=== PATIENT | male | born 1965 | race Two or more races ===

== ENCOUNTER 2021-10-10 07:48 | Emergency (ER) | payer OTHER ==
[~2021-10-10] VITALS: Ht 182.9 cm; Wt 96.2 kg
[2021-10-10 07:57] VITALS: BP 106/85
[2021-10-10] MEDS ORDERED: KETOROLAC TROMETH 60MG/2ML VIAL IM ONE (08:00)
[2021-10-10] MEDS ORDERED: IBUP800T27 PO (08:02)
[2021-10-10] MEDS ORDERED: CEPH500T PO (08:02)
== END 2021-10-10 08:30 | disposition home or self-care (01) ==
LOC: ER 07:48
DX: S90.861A Insect bite (nonvenomous), right foot, initial encounter (principal); L08.9 Local infection of the skin and subcutaneous tissue, unspecified; Z88.1 Allergy status to other antibiotic agents; W57.XXXA Bitten or stung by nonvenomous insect and other nonvenomous arthropods, initial encounter; Y93.89 Activity, other specified; Y92.89 Other specified places as the place of occurrence of the external cause; Y99.8 Other external cause status
CPT/HCPCS: 96372; 99283; J1885

== ENCOUNTER 2022-01-04 11:27 | Emergency (ER) | payer OTHER ==
[~2022-01-04] VITALS: Ht 182.9 cm; Wt 93.0 kg
[~2022-01-04 11:27] MED LIST: CEPH500T PO; IBUP800T27 PO
[2022-01-04] MEDS ORDERED: ACYC-161 PO (12:12)
[2022-01-04] MEDS ORDERED: IBUP800T27 PO (12:12)
[2022-01-04 13:29] VITALS: BP 148/91
== END 2022-01-04 13:35 | disposition home or self-care (01) ==
LOC: ER 11:27
DX: B02.9 Zoster without complications (principal); Z90.49 Acquired absence of other specified parts of digestive tract; Z79.1 Long term (current) use of non-steroidal anti-inflammatories (NSAID); Z79.899 Other long term (current) drug therapy; Z88.1 Allergy status to other antibiotic agents

== ENCOUNTER 2022-03-11 21:07 | Emergency (ER) | payer OTHER ==
[~2022-03-11] VITALS: Ht 182.9 cm; Wt 81.6 kg
[~2022-03-11 21:07] MED LIST changes: +ACYC-161 PO
[2022-03-11 21:08] VITALS: BP 153/83
== END 2022-03-11 22:36 | disposition left against medical advice (07) ==
LOC: EDBD 21:07 → ER 21:09
DX: F10.129 Alcohol abuse with intoxication, unspecified (principal); Z88.1 Allergy status to other antibiotic agents; Y90.8 Blood alcohol level of 240 mg/100 ml or more

== ENCOUNTER 2022-05-15 07:08 | Inpatient (IN) | payer OTHER ==
[~2022-05-15] VITALS: Ht 182.9 cm; Wt 89.8 kg
[2022-05-15 08:38] LABS: Urine Bacteria FEW /hpf (None Seen); Urine Blood TRACE /uL (Negative); Urine Hyaline Cast FEW /lpf (0 - 2); Urine Mucus FEW (None Seen); Urine Specific Gravity 1.025 (1.001-1.035); Urine WBC 1 /hpf (0 - 3)
[2022-05-15 08:47] LABS: Calcium 8.7 mg/dL (8.5-10.1); Potassium 4.4 mmol/L (3.5-5.1)
[2022-05-15 08:50] LABS: Amphetamine Screen, Urine NEGATIVE (NEGATIVE); Barbiturate Scree,Urine NEGATIVE (NEGATIVE); Benzodiazephine Screen, Urine NEGATIVE (NEGATIVE); Cannabinoid Screen, Urine POSITIVE (NEGATIVE); Cocaine Screen, Urine NEGATIVE (NEGATIVE); Opiate Scree,Urine NEGATIVE (NEGATIVE); Phencyclidine Screen, Urine NEGATIVE (NEGATIVE)
[2022-05-15 08:53] LABS: Basophils # (auto) 0 10 ^3/uL (0-0.2); Basophils % (auto) 0.7 % (0.0-2.0); Eosinophils # (auto) 0 10 ^3/uL (0-0.8); Eosinophils % (auto) 0.2 % (0.0-7.0); Hemoglobin 15.4 g/dL (13.5-17.5); Lymphocytes # (auto) 1.3 10 ^3/uL (0.4-5.4); Lymphocytes % (auto) 19.7 % (10.0-50.0); Mean Corpuscular Hemoglobin 27.9 pg (28.0-32.0); Mean Corpuscular Hgb Conc. 33.4 g/dL (32.0-36.0); Mean Corpuscular Volume 83.4 fL (80.0-100.0); Monocytes # (auto) 0.5 10 ^3/uL (0-1.3); Monocytes % (auto) 7.7 % (0.0-12.0); Neutrophils # (auto) 4.7 10 ^3/uL (1.6-8.6); Neutrophils % (auto) 71.7 % (37.0-80.0); Nucleated Red Blood Cells % 0.2 %; Red Blood Cells 5.52 10^6/uL (4.5-5.90); Red Cell Distribution Width 16.5 % (11.8-14.3); White Blood Cell 6.5 10^3/uL (4.4-10.8)
[2022-05-15 08:54] LABS: Albumin 4.1 g/dL (3.4-5.0); Bilirubin, Total 1.7 mg/dL (0.2-1.0); Total Protein 7.9 g/dL (6.4-8.2)
[2022-05-15] MEDS ORDERED: LORazepam 2MG/ML-1ML VIAL IV ONE (09:45)
[2022-05-15] MEDS ORDERED: chlordiazePOXIDE HCL 25 MG CAP PO ONE (09:45)
[2022-05-15] MEDS ORDERED: ONDANSETRON HCL 4 MG/2 ML VIAL IV PRN (10:30)
[2022-05-15] MEDS ORDERED: SODIUM CHLORIDE 0.9% 1,000 ML IVB ONE (10:30)
[2022-05-15] MEDS ORDERED: HYDROcodone-ACET 5/325MG TAB PO PRN (10:30)
[2022-05-15] MEDS ORDERED: THIAMINE 100mg/ml INJ (200mg/2ml VIAL) IV ONE (10:30)
[2022-05-15] MEDS ORDERED: ONDANSETRON HCL 4 MG/2 ML VIAL IM PRN (10:30)
[2022-05-15] MEDS: SODIUM CHLORIDE 0.9% 1,000 ML IV SCH ×2 (11:41→18:50)
[2022-05-15] MEDS: LORazepam 2MG/ML-1ML VIAL IV SCH ×7 (12:30→22:30)
[2022-05-15 22:00] VITALS: BP 127/74
[2022-05-16] MEDS: LORazepam 2MG/ML-1ML VIAL IV SCH ×9 (00:30→14:30)
[2022-05-16] MEDS: SODIUM CHLORIDE 0.9% 1,000 ML IV SCH ×3 (03:10→12:59)
[2022-05-16 05:16] VITALS: BP 119/75
[2022-05-16 06:12] LABS: Basophils # (auto) 0 10 ^3/uL (0-0.2); Basophils % (auto) 0.5 % (0.0-2.0); Eosinophils # (auto) 0 10 ^3/uL (0-0.8); Eosinophils % (auto) 1.1 % (0.0-7.0); Hematocrit 39.3 % (41.0-53.0); Hemoglobin 13.4 g/dL (13.5-17.5); Lymphocytes # (auto) 0.8 10 ^3/uL (0.4-5.4); Lymphocytes % (auto) 21.7 % (10.0-50.0); Mean Corpuscular Hemoglobin 28.2 pg (28.0-32.0); Mean Corpuscular Hgb Conc. 34.1 g/dL (32.0-36.0); Mean Corpuscular Volume 82.7 fL (80.0-100.0); Monocytes # (auto) 0.4 10 ^3/uL (0-1.3); Monocytes % (auto) 10.7 % (0.0-12.0); Neutrophils # (auto) 2.3 10 ^3/uL (1.6-8.6); Nucleated Red Blood Cells % 0.2 %; Red Blood Cells 4.75 10^6/uL (4.5-5.90); Red Cell Distribution Width 16.8 % (11.8-14.3); White Blood Cell 3.5 10^3/uL (4.4-10.8)
[2022-05-16 06:20] LABS: Albumin 3.4 g/dL (3.4-5.0); Calcium 7.7 mg/dL (8.5-10.1); Potassium 4.2 mmol/L (3.5-5.1)
[2022-05-16 06:25] LABS: BUN/Creatinine Ratio 12.5; Bilirubin, Total 1.2 mg/dL (0.2-1.0); Total Protein 6.3 g/dL (6.4-8.2)
[2022-05-16 08:25] VITALS: BP 126/76
[2022-05-16 09:00] VITALS: BP 126/76
[2022-05-16] MEDS ORDERED: ENOXAPARIN SOD 40 MG/0.4 ML SYRINGE SC SCH (10:00)
[2022-05-16] MEDS ORDERED: FOLIC ACID 1 MG TAB PO SCH (10:00)
[2022-05-16] MEDS ORDERED: THIAMINE HCL 100 MG TAB PO SCH (10:00)
[2022-05-16 13:00] VITALS: BP 123/82
[2022-05-16] MEDS ORDERED: SODIUM CHLORIDE 0.9% 1,000 ML IV SCH (13:00)
[2022-05-16] MEDS: chlordiazePOXIDE HCL 25 MG CAP PO SCH ×2 (14:00→14:32)
[2022-05-17] MEDS ORDERED: FOLIC ACID 1 MG, MULTIPLE VITAMIN 10 ML, MAGNESIUM SULF SDV 50% 8 MEQ, THIAMINE INJ 100... INJ SCH ×5 (12:00)
== END 2022-05-16 15:30 | disposition left against medical advice (07) | DRG 422 ==
LOC: ER 07:08 → TELE 10:24 → TELE-EAST 19:50
PROVIDERS: ADMIT Internal Medicine; ATTEND Internal Medicine
DX: E86.0 Dehydration (principal); G93.41 Metabolic encephalopathy; F10.129 Alcohol abuse with intoxication, unspecified; R00.0 Tachycardia, unspecified; Z20.822 Contact with and (suspected) exposure to COVID-19; F10.139 Alcohol abuse with withdrawal, unspecified; R79.89 Other specified abnormal findings of blood chemistry; Z88.1 Allergy status to other antibiotic agents; Z90.49 Acquired absence of other specified parts of digestive tract; Z71.41 Alcohol abuse counseling and surveillance of alcoholic; Z53.29 Procedure and treatment not carried out because of patient's decision for other reasons
CPT/HCPCS: 36415; 80053; 80307; 80320; 81001; 83690; 85025; 93005; 96361; 96374; 96375; G0378

== ENCOUNTER 2023-08-25 12:42 | Emergency (ER) | payer OTHER ==
[2023-08-25] MEDS ORDERED: SODIUM CHLORIDE 0.9% 1,000 ML IV ONE (13:30)
[2023-08-25] MEDS ORDERED: LORazepam 2MG/ML-1ML VIAL IV ONE ×2 (13:30→15:30)
[2023-08-25] MEDS ORDERED: THIAMINE HCL 100 MG TAB PO ONE (13:30)
[2023-08-25 13:50] LABS: Basophils # (auto) 0 10 ^3/uL (0-0.2); Eosinophils # (auto) 0 10 ^3/uL (0-0.8); Monocytes # (auto) 0.6 10 ^3/uL (0-1.3)
[2023-08-25 13:52] LABS: Basophils % (auto) 0.2 % (0.0-2.0); Eosinophils % (auto) 0.1 % (0.0-7.0); Hematocrit 43.4 % (41.0-53.0); Hemoglobin 14.3 g/dL (13.5-17.5); Lymphocytes # (auto) 1.1 10 ^3/uL (0.4-5.4); Lymphocytes % (auto) 17.3 % (10.0-50.0); Mean Corpuscular Hemoglobin 25.5 pg (28.0-32.0); Mean Corpuscular Hgb Conc. 32.9 g/dL (32.0-36.0); Mean Corpuscular Volume 77.7 fL (80.0-100.0); Monocytes % (auto) 9.2 % (0.0-12.0); Neutrophils # (auto) 4.7 10 ^3/uL (1.6-8.6); Neutrophils % (auto) 73.2 % (37.0-80.0); Nucleated Red Blood Cells % 0.1 %; Red Blood Cells 5.59 10^6/uL (4.5-5.90); Red Cell Distribution Width 19.4 % (11.8-14.3); White Blood Cell 6.4 10^3/uL (4.4-10.8)
[2023-08-25 14:01] LABS: Urine Bacteria NONE SEEN /hpf (None Seen); Urine Blood Negative /uL (Negative); Urine Clarity Clear (Clear); Urine Color Yellow (Yellow); Urine Protein, UAD TRACE (Negative); Urine Specific Gravity 1.014 (1.001-1.035); Urine Urobilinogen Normal (Negative); Urine WBC 1 /hpf (0 - 3); Urine pH 6.5 (5.0-8.0)
[2023-08-25 15:14] LABS: Alanine Aminotransferase 156 U/L (7-40); Albumin 4.1 g/dL (3.2-4.8); Alkaline Phosphatase 75 U/L (46-116); Anion Gap 10 (5-15); Aspartate Aminotransferase 179 U/L (13-40); BUN/Creatinine Ratio 13.4 (10.0-20.0); Blood Alcohol 24.1 mg/dL (<10); Blood Urea Nitrogen 11 mg/dL (9-23); Calcium 8.6 mg/dL (8.5-10.1); Carbon Dioxide 25 mmol/L (20-30); Chloride 99 mmol/L (98-107); Glucose 86 mg/dL (74-106); Potassium 4.3 mmol/L (3.5-5.1); Sodium 134 mmol/L (136-145)
[2023-08-25 15:15] LABS: Bilirubin, Total 1.1 mg/dL (0.2-1.0); Total Protein 6.4 g/dL (5.7-8.2)
[2023-08-25 15:27] LABS: Amphetamine Screen, Urine Neg (NEGATIVE); Barbiturate Scree,Urine Neg (NEGATIVE); Benzodiazephine Screen, Urine Neg (NEGATIVE); Cocaine Screen, Urine Neg (NEGATIVE)
[2023-08-25 15:28] LABS: Opiate Scree,Urine Neg (NEGATIVE)
[2023-08-25 15:29] LABS: Cannabinoid Screen, Urine Neg (NEGATIVE); Phencyclidine Screen, Urine Neg (NEGATIVE)
[2023-08-25] MEDS ORDERED: chlordiazePOXIDE HCL 25 MG CAP PO ONE (15:30)
[2023-08-25 15:32] LABS: Magnesium 1.8 mg/dL (1.6-2.6)
[2023-08-25] MEDS ORDERED: CHL25C GT (17:08)
[2023-08-25] MEDS ORDERED: CHL25C PO (17:09)
[2023-08-25 17:33] VITALS: BP 132/73; PULSE 78; RESP 17; O2SAT 98
== END 2023-08-25 17:41 | disposition home or self-care (01) ==
LOC: ER 12:42
DX: F10.139 Alcohol abuse with withdrawal, unspecified (principal); I10 Essential (primary) hypertension; E78.5 Hyperlipidemia, unspecified; Z79.899 Other long term (current) drug therapy; Y90.9 Presence of alcohol in blood, level not specified
CPT/HCPCS: 36415; 80053; 80307; 80320; 81001; 83735; 85025; 93005; 96361; 96374; 96376; 99284; J2060; J7030

== ENCOUNTER 2024-02-26 13:29 | Emergency (ER) | payer OTHER ==
[~2024-02-26] VITALS: Ht 182.9 cm; Wt 87.9 kg
[~2024-02-26 13:29] MED LIST changes: -ACYC-161 PO; -CEPH500T PO; +CHL25C PO; -IBUP800T27 PO
[2024-02-26 14:37] LABS: Basophils # (auto) 0 10 ^3/uL (0-0.2); Basophils % (auto) 0.3 % (0.0-2.0); Eosinophils # (auto) 0 10 ^3/uL (0-0.8); Eosinophils % (auto) 0.1 % (0.0-7.0); Hematocrit 49.7 % (41.0-53.0); Hemoglobin 16.7 g/dL (13.5-17.5); Lymphocytes # (auto) 0.7 10 ^3/uL (0.4-5.4); Lymphocytes % (auto) 9.7 % (10.0-50.0); Mean Corpuscular Hemoglobin 29.8 pg (28.0-32.0); Mean Corpuscular Hgb Conc. 33.6 g/dL (32.0-36.0); Mean Corpuscular Volume 88.6 fL (80.0-100.0); Monocytes # (auto) 0.8 10 ^3/uL (0-1.3); Monocytes % (auto) 10.8 % (0.0-12.0); Neutrophils # (auto) 6.1 10 ^3/uL (1.6-8.6); Neutrophils % (auto) 79.1 % (37.0-80.0); Nucleated Red Blood Cells % 0.4 %; Red Blood Cells 5.61 10^6/uL (4.5-5.90); Red Cell Distribution Width 15.4 % (11.8-14.3); White Blood Cell 7.7 10^3/uL (4.4-10.8)
[2024-02-26 14:51] LABS: Alanine Aminotransferase 56 U/L (7-40); Albumin 4.8 g/dL (3.2-4.8); Alkaline Phosphatase 89 U/L (46-116); Anion Gap 6 (5-15); Aspartate Aminotransferase 25 U/L (13-40); Bilirubin, Total 0.8 mg/dL (0.2-1.0); Blood Urea Nitrogen 11 mg/dL (9-23); Calcium 9.7 mg/dL (8.7-10.4); Carbon Dioxide 26 mmol/L (20-30); Chloride 106 mmol/L (98-107); Glucose 139 mg/dL (74-106); Lipase 35 U/L (12-53); Potassium 4.3 mmol/L (3.5-5.1); Sodium 138 mmol/L (136-145); Total Protein 6.9 g/dL (5.7-8.2)
[2024-02-26 18:09] LABS: Urine Bacteria None Seen /hpf (None Seen)
[2024-02-26 18:18] LABS: Urine Blood Negative /uL (Negative); Urine Clarity Clear (Clear); Urine Color Yellow (Yellow); Urine Mucus FEW (None Seen); Urine Protein, UAD 1+ (Negative); Urine Specific Gravity 1.031 (1.001-1.035); Urine Urobilinogen Normal (Negative); Urine WBC <1 /hpf (0 - 3)
[2024-02-26] MEDS: SODIUM CHLORIDE 0.9% 1,000 ML IV ONE (18:22)
[2024-02-26] MEDS: HYDROcodone-ACET 5/325MG TAB PO ONE (18:28)
[2024-02-26] MEDS: fentaNYL CITRATE 100 MCG/2 ML VL IV ONE (18:36)
[2024-02-26] MEDS: ONDANSETRON HCL 4 MG/2 ML VIAL IV ONE (18:37)
[2024-02-26] MEDS: fentaNYL CITRATE 100 MCG/2 ML VL IM ONE (18:40)
[2024-02-26] MEDS: ONDANSETRON HCL 4 MG/2 ML VIAL IM ONE (18:45)
[2024-02-26 18:48] VITALS: TEMP 98.7; O2SAT 96
[2024-02-26 19:26] VITALS: BP 140/80; PULSE 96; RESP 18
== END 2024-02-26 20:51 | disposition left against medical advice (07) ==
LOC: ER 13:29
DX: J90 Pleural effusion, not elsewhere classified (principal); R10.9 Unspecified abdominal pain; R07.89 Other chest pain; Z90.49 Acquired absence of other specified parts of digestive tract; Z79.899 Other long term (current) drug therapy; Z88.1 Allergy status to other antibiotic agents
CPT/HCPCS: 36415; 71046; 74176; 80053; 81001; 83605; 83690; 83880; 84484; 85025; 96360; 96372; 99285; J2405; J3010; J7030

== ENCOUNTER 2024-04-07 10:34 | Emergency (ER) | payer OTHER ==
[~2024-04-07] VITALS: Ht 182.9 cm; Wt 88.0 kg
[2024-04-07] MEDS: SODIUM CHLORIDE 0.9% 1,000 ML IV ONE (11:00)
[2024-04-07] MEDS: PROCHLORPERAZINE MALEATE 10 MG TAB PO ONE (11:00)
[2024-04-07 11:33] LABS: Basophils # (auto) 0 10 ^3/uL (0-0.2); Basophils % (auto) 0.1 % (0.0-2.0); Eosinophils # (auto) 0 10 ^3/uL (0-0.8); Hematocrit 47.3 % (41.0-53.0); Hemoglobin 16.2 g/dL (13.5-17.5); Lymphocytes # (auto) 0.5 10 ^3/uL (0.4-5.4); Lymphocytes % (auto) 11.5 % (10.0-50.0); Mean Corpuscular Hemoglobin 30.4 pg (28.0-32.0); Mean Corpuscular Hgb Conc. 34.3 g/dL (32.0-36.0); Mean Corpuscular Volume 88.8 fL (80.0-100.0); Monocytes # (auto) 0.6 10 ^3/uL (0-1.3); Monocytes % (auto) 13.6 % (0.0-12.0); Neutrophils # (auto) 3.6 10 ^3/uL (1.6-8.6); Neutrophils % (auto) 74.8 % (37.0-80.0); Nucleated Red Blood Cells % 0.1 %; Red Blood Cells 5.33 10^6/uL (4.5-5.90); White Blood Cell 4.8 10^3/uL (4.4-10.8)
[2024-04-07 11:36] LABS: Chloride 101 mmol/L (98-107); Potassium 3.9 mmol/L (3.5-5.1); Sodium 134 mmol/L (136-145)
[2024-04-07 11:37] LABS: Anion Gap 10 (5-15); Calcium 9.2 mg/dL (8.5-10.1); Carbon Dioxide 23 mmol/L (20-30)
[2024-04-07 11:42] LABS: BUN/Creatinine Ratio 9.1 (10.0-20.0); Blood Urea Nitrogen 8 mg/dL (9-23); Glucose 84 mg/dL (74-106)
[2024-04-07 11:43] LABS: Blood Alcohol 252.5 mg/dL (<10)
[2024-04-07] MEDS: LORazepam 2MG/ML-1ML VIAL ONE (11:44)
[2024-04-07 13:26] LABS: Amphetamine Screen, Urine Neg (NEGATIVE)
[2024-04-07 13:27] LABS: Barbiturate Scree,Urine Neg (NEGATIVE); Benzodiazephine Screen, Urine Neg (NEGATIVE); Cannabinoid Screen, Urine Neg (NEGATIVE); Cocaine Screen, Urine Neg (NEGATIVE); Opiate Scree,Urine Neg (NEGATIVE); Phencyclidine Screen, Urine Neg (NEGATIVE)
[2024-04-07] MEDS ORDERED: CHL25C PO (15:09)
[2024-04-07 15:24] VITALS: PULSE 90; RESP 20; O2SAT 96
[2024-04-07] MEDS: LORazepam 2MG/ML-1ML VIAL IV ONE (15:34)
[2024-04-07 16:30] VITALS: BP 162/58; PULSE 98; RESP 20; TEMP 98.2; O2SAT 96
== END 2024-04-07 16:32 | disposition home or self-care (01) ==
LOC: ER 10:34
DX: F10.239 Alcohol dependence with withdrawal, unspecified (principal); R25.1 Tremor, unspecified; F17.210 Nicotine dependence, cigarettes, uncomplicated; F12.10 Cannabis abuse, uncomplicated; E78.5 Hyperlipidemia, unspecified; Z88.1 Allergy status to other antibiotic agents; Z79.899 Other long term (current) drug therapy; Y90.8 Blood alcohol level of 240 mg/100 ml or more
CPT/HCPCS: 36415; 80048; 80307; 80320; 85025; 96361; 96374; 99283; J2060; J7030; Q0164